=== PATIENT | female | born 1945 | race Caucasian/White ===

== ENCOUNTER 2017-08-21 14:18 | Inpatient (IN) | payer OTHER ==
[~2017-08-21] VITALS: Ht 157.5 cm; Wt 54.0 kg
[~2017-08-21 14:18] MED LIST: ACCUNEB SO1.25 MG/1 INH; AMITRIPTYLINE H25 M2 PO; BENTYL 20 MG TA20 M1 PO; CIPRO500 MG PO; CLONAZEPAM 0.50.5 M1 PO; FLAGYL500 MG PO; MIRAPEX1.5 MG PO; PRILOSEC OTC20 MG PO; SYNTHROID25 MC1 PO; TOPAMAX 100 MG100 MG PO; TRAMADOL 50 MG50 MG PO; ZOCOR20 MG PO
[2017-08-21 14:46] VITALS: BP 135/67
[2017-08-21 14:53] LABS: URINE BILIRUBIN NEGATIVE (Negative); URINE BLOOD NEGATIVE (Negative); URINE CLARITY CLEAR; URINE COLOR YELLOW; URINE GLUCOSE-RANDOM NEGATIVE (Negative); URINE KETONES TRACE (Negative); URINE LEUKOCYTES-REFLEX TRACE (Negative); URINE NITRITE-REFLEX NEGATIVE (Negative); URINE PROTEIN NEGATIVE (Negative); URINE SPECIFIC GRAVITY 1.025 (1.005-1.030); URINE UROBILINOGEN 0.2 E.U./dl (0.2-1.0)
[2017-08-21 15:00] LABS: ABSOLUTE BASOPHILS 0.1 thou/uL (0.0-0.2); ABSOLUTE EOSINOPHILS 0.3 thou/uL (0.0-0.7); ABSOLUTE LYMPHOCYTES 3.3 thou/uL (0.8-5.3); ABSOLUTE MONOCYTES 0.7 thou/uL (0.0-1.2); ABSOLUTE NEUTROPHILS 7.1 thou/uL (1.6-8.1); BASOPHILS 0.6 %; EOSINOPHILS 2.6 %; HEMOGLOBIN 11.5 gm/dL (12.0-15.0); LYMPHOCYTES 28.8 %; MCH 30.9 pg (26.0-34.0); MCHC 32.8 g/dL (28.0-37.0); MCV 94.3 fL (80.0-100.0); MONOCYTES 6.1 %; MPV 7.7 fl. (7.2-11.1); NUCLEATED RBCS 0 /100WBC; PLATELET COUNT* 178 thou/uL (150-400); POLYS 61.9 %; RBC 3.71 mil/uL (4.20-5.00); RDW-CV 13.8 % (10.5-14.5); WBC 11.5 thou/uL (4.0-11.0)
[2017-08-21 15:06] LABS: BACTERIA-REFLEX 1-9 Few /HPF (None Seen); MUCUS 0-3 Light strn/LPF (None Seen); SQUAMOUS >10 Many /LPF (0-3)
[2017-08-21 15:07] LABS: CASTS None Seen /LPF (None Seen); CRYSTALS None Seen /LPF (None Seen); URINE RBC None Seen /HPF (0-2); URINE WBC-REFLEX 6-15 Few /HPF (0-5)
[2017-08-21 15:09] LABS: ANION GAP 6 mmol/L (7-16); BUN 32 mg/dL (7-18); CALCIUM 8.8 mg/dL (8.5-10.1); CHLORIDE 107 mmol/L (98-107); CO2 26 mmol/L (21-32); CREATININE 1.2 mg/dL (0.6-1.3); GLUCOSE 101 mg/dL (70-99); POTASSIUM 4.1 mmol/L (3.5-5.1); SODIUM 139 mmol/L (136-145)
[2017-08-21 15:15] LABS: ALBUMIN 3.8 g/dL (3.4-5.0); ALKALINE PHOSPHATASE 108 U/L (46-116); LIPASE 87 U/L (73-393); SGOT 17 U/L (15-37); SGPT 21 U/L (30-65); TOTAL BILIRUBIN 0.3 mg/dL (<0.1-1.0); TOTAL PROTEIN 7.2 g/dL (6.4-8.2); TROPONIN-I LEVEL <0.06 ng/mL (<0.06)
[2017-08-21] MEDS ORDERED: CIPRO500 MG PO (17:09)
[2017-08-21] MEDS ORDERED: HYDROCODONE-AP1 EAC6 PO (17:09)
[2017-08-21] MEDS ORDERED: FLAGYL500 MG PO (17:09)
[2017-08-21 18:36] VITALS: BP 126/93
[2017-08-21] MEDS ORDERED: NAPROSYN500 MG PO (18:59)
[2017-08-21 19:09] VITALS: BP 133/50
[2017-08-21 20:45] VITALS: BP 111/52
[2017-08-22 09:30] VITALS: BP 122/64
[2017-08-22 16:45] VITALS: BP 110/54
[2017-08-22 21:35] VITALS: BP 106/56
[2017-08-23 02:10] LABS: HEPATITIS B SURFACE AG Negative (Negative)
[2017-08-23 05:05] LABS: HEMATOCRIT 33.1 % (37.0-47.0); HEMOGLOBIN 10.8 gm/dL (12.0-15.0); MCH 31.4 pg (26.0-34.0); MCHC 32.6 g/dL (28.0-37.0); MCV 96.2 fL (80.0-100.0); MPV 8.4 fl. (7.2-11.1); RBC 3.44 mil/uL (4.20-5.00); RDW-CV 13.3 % (10.5-14.5); WBC 6.9 thou/uL (4.0-11.0)
[2017-08-23 05:24] LABS: CALCIUM 8.6 mg/dL (8.5-10.1); CREATININE 0.9 mg/dL (0.6-1.3); MAGNESIUM 2.1 mg/dL (1.8-2.4); POTASSIUM 4.2 mmol/L (3.5-5.1)
[2017-08-23 07:55] VITALS: BP 112/54
--- NOTE | 2017-08-23 13:30 | EKG ---
[place] [address] ELECTROCARDIOGRAM REPORT Name: YOEL MENDOZA Room: [address] IN [facility].#: [id number] Admission: 08/21/17 Attend Phys: Andrea Ram MD Discharge: Date of : 45 Report #: [id number] THIS REPORT FOR: //name// [facility] ED Test Date: 2017-08-21 Test Time: 14:52:44 Pat Name: YOEL MENDOZA Department: Room: Gender: F Customer Service Supervisor: Cecille HARTLEY : 1945 Requested By: Yana Florez Order Number: [id number] MD: Rojelio Cruz Measurements Intervals [place] Rate: 71 P: 52 [place]: 175 QRS: -7 QRSD: 89 T: 29 QT: 398 QTc: 433 Interpretive Statements Sinus rhythm Low voltage, precordial leads No previous ECG available for comparison Electronically Signed On 08-23-2017 13:30:32 CDT by Rojelio Cruz [email or web address] <ELECTRONICALLY SIGNED> By: Rojelio Cruz MD, [facility] 08/23/17 1330 1452 145 Rojelio Cruz MD, [facility] /EPI
[2017-08-23 15:48] VITALS: BP 113/53
[2017-08-23 20:00] VITALS: BP 121/59
[2017-08-24 05:01] LABS: ALBUMIN 2.9 g/dL (3.4-5.0); CALCIUM 8.4 mg/dL (8.5-10.1); TOTAL BILIRUBIN 0.2 mg/dL (<0.1-1.0); TOTAL PROTEIN 6.2 g/dL (6.4-8.2)
[2017-08-24 05:04] LABS: ABSOLUTE EOSINOPHILS 0.2 thou/uL (0.0-0.7); ABSOLUTE LYMPHOCYTES 1.7 thou/uL (0.8-5.3); ABSOLUTE MONOCYTES 0.5 thou/uL (0.0-1.2); ABSOLUTE NEUTROPHILS 4.2 thou/uL (1.6-8.1); BASOPHILS 0.6 %; EOSINOPHILS 3.1 %; HEMATOCRIT 31.3 % (37.0-47.0); HEMOGLOBIN 10.4 gm/dL (12.0-15.0); LYMPHOCYTES 25.7 %; MCH 31.7 pg (26.0-34.0); MCHC 33.2 g/dL (28.0-37.0); MCV 95.5 fL (80.0-100.0); MONOCYTES 7.6 %; MPV 8.3 fl. (7.2-11.1); NUCLEATED RBCS 0 /100WBC; PLATELET COUNT* 138 thou/uL (150-400); RBC 3.27 mil/uL (4.20-5.00); RDW-CV 12.8 % (10.5-14.5); WBC 6.7 thou/uL (4.0-11.0)
[2017-08-24 08:18] VITALS: BP 133/65
[2017-08-24 11:47] VITALS: BP 133/65
[2017-08-24] MEDS ORDERED: CIPRO500 MG PO (11:53)
[2017-08-24] MEDS ORDERED: FLAGYL500 MG PO (11:54)
--- NOTE | 2017-08-30 16:59 | CON ---
[address] [address] CONSULTATION Name: YOEL MENDOZA Room: [address] M.R.#: [id number] Admission: 08/21/17 Attend Phys: Andrea Ram MD Discharge: 08/24/17 Date of : 45 Report #: [id number] THIS REPORT FOR: //name// CC: Mari Araujo DICTATED BY: [facility] DATE OF SERVICE: 08/22/2017 Please note at the time of this dictation, the patient was seen and physically examined by myself. REASON FOR CONSULTATION: Abdominal pain, diverticulitis. HISTORY OF PRESENT ILLNESS: This is a 72-year-old female who presented to the emergency room with worsening of some left lower quadrant pain and a little bit of nausea related to the pain yesterday morning. The patient in getting her history states that her bowel habits have changed over the last several months and that she has been having very loose stools, diarrhea. It may wake her up in the middle of the night as well as in the morning she has urgency to go to the bathroom and may go additional 3-4 times. She states sometimes they are little small formed, but sometimes very loose, noting she did not have any pain prior until yesterday morning when this appeared. The patient did have a colonoscopy back in [address] Muller, she had a poor prep, was recommended to repeat in a year; however, the patient refused because she was living in [place] because her son had recently . Colonoscopy at that time showed nonthrombosed external hemorrhoids, diverticulosis throughout the entire colon and she had a transverse polyp that was not removed at that time. The patient states prior to her change in her bowel habits, she was going daily, soft and formed. She denies any weight loss or increased fatigue at this time. ALLERGIES: IODINE, CODEINE, FENTANYL, and ZITHROMAX. MEDICATIONS: From home include Prilosec, Zocor, clonazepam, Synthroid, AccuNeb, Mirapex, Bentyl, Topamax and naproxen. PAST MEDICAL HISTORY: Restless leg, hypothyroidism, COPD, and hypercholesterolemia. PAST SURGICAL HISTORY: Includes hysterectomy, left hand dystonia, bilateral feet and some back issues. FAMILY HISTORY: Negative for any [place] [address] CONSULTATION Name: YOEL MENDOZA Room: [address]#: [id number] Admission: 08/21/17 Attend Phys: Andrea Ram MD Discharge: 08/24/17 Date of : 45 Report #: [id number] SOCIAL HISTORY: Denies any alcohol, tobacco or illegal drug use. REVIEW OF SYSTEMS: Twelve-point review of systems is essentially negative except what is mentioned in the HPI. PHYSICAL EXAMINATION: VITAL SIGNS: Temperature 36.6, pulse 70, respirations 20, blood pressure 122/64. HEART: Regular rate and rhythm. LUNGS: Clear. ABDOMEN: Soft, positive bowel sounds in all 4 quadrants with left lower quadrant tenderness noted to palpation. LABORATORY DATA: Hemoglobin 11.5, hematocrit 35, white count was 11.5, hematocrit is 35, platelets 178. Sodium 139, potassium 4.1, chloride 107, CO2 of 26, BUN is 32, creatinine is 1.2, glucose is 101, and GFR is 44. CT shows irregular liver with questionable early cirrhosis noted, descending and sigmoid junction focal diverticulitis. Total bilirubin is 0.3, alk phos is 108, ALT 21, and AST is 17. IMPRESSION: 1. Abdominal pain. 2. Diverticulitis. 3. Change in bowel habits with noticed urgency and nocturnal stooling. 4. Questionable underlying cirrhosis. PLAN: 1. Ultrasound of the abdomen to fully evaluate her liver more closely. 2. Labs, ESR, CRP and acute hepatitis panel. 3. Full liquid diet and advance as tolerated. 4. Continue antibiotics. 5. Colonoscopy will be needed to perform in 6 weeks. Thank you for allowing us to participate in this patient's care. Please do not hesitate to call with any questions in regard to this consult. ADDENDUM I have personally seen and examined the patient and reviewed labs and imaging. The patient with abdominal pain and imaging suggestive of diverticulitis. There is mild splenomegaly and some change in contour of the liver. Abdominal ultrasound has been ordered and pending results. We will continue IV antibiotics as this has been started already. The [place] [address] CONSULTATION Name: YOEL MENDOZA Room: [address] [place] ..#: [id number] Admission: 08/21/17 Attend Phys: Andrea Ram MD Discharge: 08/24/17 Date of : 45 Report #: [id number] and we will put her on bowel regimen. We will follow up closely and make further recommendation. <ELECTRONICALLY SIGNED> By: Cristiana David MD 08/30/17 1659 1332 [id number] David MD /nt
== END 2017-08-24 13:37 | disposition home or self-care (01) | DRG 872 ==
LOC: M.ERS 14:18 → M.TBA-ER 17:47 → M.ORTHSURG 17:47
PROVIDERS: Internal Medicine; Nurse Practitioner Adult Health; Physician Assistant; ADMIT Internal Medicine
DX: A41.9 Sepsis, unspecified organism (principal); K57.92 Diverticulitis of intestine, part unspecified, without perforation or abscess without bleeding; N39.0 Urinary tract infection, site not specified; E03.9 Hypothyroidism, unspecified; J44.9 Chronic obstructive pulmonary disease, unspecified; E78.00 Pure hypercholesterolemia, unspecified; K52.9 Noninfective gastroenteritis and colitis, unspecified; G24.9 Dystonia, unspecified; R65.10 Systemic inflammatory response syndrome (SIRS) of non-infectious origin without acute organ dysfunction; E86.0 Dehydration; G25.81 Restless legs syndrome; Z88.6 Allergy status to analgesic agent; Z88.1 Allergy status to other antibiotic agents; Z91.041 Radiographic dye allergy status; Z90.710 Acquired absence of both cervix and uterus; Z87.891 Personal history of nicotine dependence; Z83.3 Family history of diabetes mellitus; Z80.9 Family history of malignant neoplasm, unspecified; Z79.2 Long term (current) use of antibiotics; Z79.899 Other long term (current) drug therapy

== ENCOUNTER 2017-10-02 14:41 | Emergency (ER) | payer OTHER ==
[~2017-10-02] VITALS: Ht 154.9 cm; Wt 53.1 kg
[~2017-10-02 14:41] MED LIST changes: +HYDROCODONE-AP1 EAC6 PO; +NAPROSYN500 MG PO
[2017-10-02 15:16] LABS: ABSOLUTE BASOPHILS 0.1 thou/uL (0.0-0.2); ABSOLUTE EOSINOPHILS 0.2 thou/uL (0.0-0.7); ABSOLUTE LYMPHOCYTES 2.8 thou/uL (0.8-5.3); ABSOLUTE MONOCYTES 0.5 thou/uL (0.0-1.2); ABSOLUTE NEUTROPHILS 5.6 thou/uL (1.6-8.1); BASOPHILS 0.8 %; EOSINOPHILS 2.7 %; HEMATOCRIT 37.5 % (37.0-47.0); HEMOGLOBIN 12.3 gm/dL (12.0-15.0); MCH 30.5 pg (26.0-34.0); MCHC 32.7 g/dL (28.0-37.0); MCV 93.4 fL (80.0-100.0); MONOCYTES 5.2 %; NUCLEATED RBCS 0 /100WBC; PLATELET COUNT* 181 thou/uL (150-400); POLYS 61.3 %; RBC 4.01 mil/uL (4.20-5.00); RDW-CV 12.7 % (10.5-14.5); WBC 9.2 thou/uL (4.0-11.0)
[2017-10-02 15:23] LABS: CALCIUM 8.8 mg/dL (8.5-10.1); CREATININE 1.1 mg/dL (0.6-1.3); POTASSIUM 3.7 mmol/L (3.5-5.1)
[2017-10-02 15:29] LABS: ALBUMIN 4.1 g/dL (3.4-5.0); TOTAL BILIRUBIN 0.3 mg/dL (<0.1-1.0); TOTAL PROTEIN 7.7 g/dL (6.4-8.2)
[2017-10-02 15:36] LABS: URINE BILIRUBIN NEGATIVE (Negative); URINE BLOOD NEGATIVE (Negative); URINE CLARITY CLEAR; URINE COLOR YELLOW; URINE GLUCOSE-RANDOM NEGATIVE (Negative); URINE KETONES NEGATIVE (Negative); URINE LEUKOCYTES-REFLEX NEGATIVE (Negative); URINE NITRITE-REFLEX NEGATIVE (Negative); URINE PROTEIN NEGATIVE (Negative); URINE SPECIFIC GRAVITY <= 1.005 (1.005-1.030); URINE UROBILINOGEN 0.2 E.U./dl (0.2-1.0)
[2017-10-02] MEDS ORDERED: FLAGYL500 MG PO (16:04)
[2017-10-02] MEDS ORDERED: ZOFRAN ODT4 MG PO (16:04)
[2017-10-02] MEDS ORDERED: CIPRO250 M1 PO (16:04)
[2017-10-02] MEDS ORDERED: TRAMADOL 50 MG50 MG PO (16:04)
[2017-10-02 16:14] VITALS: BP 114/53
== END 2017-10-02 16:15 | disposition home or self-care (01) ==
LOC: M.ERS 14:41
PROVIDERS: Nurse Practitioner Family
DX: K57.92 Diverticulitis of intestine, part unspecified, without perforation or abscess without bleeding (principal); J44.9 Chronic obstructive pulmonary disease, unspecified; G25.81 Restless legs syndrome; E03.9 Hypothyroidism, unspecified; Z88.1 Allergy status to other antibiotic agents; Z88.5 Allergy status to narcotic agent; Z88.6 Allergy status to analgesic agent; Z91.041 Radiographic dye allergy status; Z90.710 Acquired absence of both cervix and uterus